=== PATIENT | male | born 1945 | race Caucasian/White ===

== ENCOUNTER 2017-01-20 14:53 | Inpatient (IN) | payer OTHER ==
--- NOTE | ~2017-01-20 | DS ---
Discharge Summary [address] [place]. [address] NAME: JALEEL BONILLA : 45 STATUS : DIS IN PAT#: [id number] AGE: 72 ADM/REG DATE : 01/20/17 MR#: [id number] REPORT SERV DATE: 01/28/17 DICTATED BY: GERHARD JUAREZ DATE: 01/27/17 REPORT STATUS : Draft TRANSCRIBED BY: MODL DATE: 01/27/17 ADMISSION DATE: 01/20/2017 DISCHARGE DATE: 01/27/2017 ADDENDUM: This dictation is an addition to interim discharge summary dictated by Dr. Michael Galloway on 01/23/2017. In addition, the patient did present with fourth lower extremity digit osteomyelitis. Surgery was subsequently consulted. For further details please refer to consultation note dictated on 01/22/2017. I assumed care of the patient on 01/24/2017. The patient was taken to the operating room for fourth digit amputation. For further details, please refer to operative note dictated by Dr. Stanford on 01/24/2017. Status post right fourth digit lower extremity amputation, the patient was returned to the hospital room where he remained hemodynamically stable. The patient was placed on a dressing change schedule of Monday, Monday, and Monday. He was kept inhouse till today for his last dressing change prior to the weekend before being discharged. Plan is for the patient to follow up with Surgery for dressing change and further management. Plan has been discussed with the patient who voices understanding and is agreeable with this plan. All other information in the interim discharge summary remains the same. DISCHARGE MEDICATIONS: 1. Atorvastatin 20 mg p.o. at bedtime. 2. Lisinopril 10 mg p.o. daily. 3. Omeprazole 20 mg p.o. twice a day. 4. Metformin 1000 mg p.o. twice a day. 5. Losartan 25 mg p.o. daily. 6. Alprazolam 1 mg p.o. p.r.n. 7. Zanaflex 2 to 4 mg p.o. twice a day p.r.n. PROCEDURE: Right lower extremity fourth digit amputation on 01/24/2017. MUFFLER HAND: Crow Stanford M.D. MRI lower extremity non-joint performed on 01/21/2017. DISPOSITION: The patient will be discharged home. ACTIVITY: As tolerated. DIET: Diabetic diet. All other information in the discharge summary remains the same. Greater than 30 minutes was spent coordinating care, providing counseling, medication reconciliation, dictation of note. Discharge Summary [address] [place]. [address] NAME: JALEEL BONILLA : 45 STATUS : DIS IN PAT#: [id number] AGE: 72 ADM/REG DATE : 01/20/17 MR#: [id number] REPORT SERV DATE: 01/28/17 DICTATED BY: GERHARD JUAREZ DATE: 01/27/17 REPORT STATUS : Draft TRANSCRIBED BY: JOVANA DATE: 01/27/17 DICTATED BY: MD ROSALIA Solis/JOVANA Gerhard Juarez MD / [id number] CC: MD Jasvir Solis M.D.
--- NOTE | ~2017-01-20 | IDS ---
Interim Discharge Summary [facility] [address] [place]. [address] NAME: JALEEL BONILLA : 45 STATUS : ADM IN [facility]#: [id number] AGE: 72 ADM/REG DATE : 01/20/17 MR#: [id number] REPORT SERV DATE: 01/23/17 DICTATED BY: DATE: REPORT STATUS : Draft TRANSCRIBED BY: MODL DATE: 01/23/17 ADMISSION DATE: 01/20/2017 DISCHARGE DATE: INTERIM DISCHARGE DIAGNOSES: 1. Gangrene of the 4th right toe. 2. Osteomyelitis of the 4th right toe. 3. Tobacco dependence. 4. History of atrial fibrillation. 5. Obesity with BMI of 34.4. 6. Hypertension. 7. Aex-izlzvdm-rneggnrmd diabetes mellitus with a hemoglobin A1c of 8. CONSULTING PHYSICIAN: Crow Stanford M.D. with Surgery. IMAGING: Includes MRI of the right foot demonstrating osteomyelitis of the 4th right toe. HOSPITAL COURSE: Please refer to my H and P on 01/20/2017. Since that time, the patient was placed on IV vancomycin and cefepime. He has been afebrile with a white blood cell count of 5.1. He "feels better." Consult with Dr. Stanford is still pending. He will see the patient today to evaluate for possible amputation. The patient has had three bowel movements today. I am going to discontinue his cefepime and continue him on vancomycin for coverage for staph and strep. 1. Tobacco dependence. The patient has been smoking almost his life. However, he does not want a nicotine patch during his hospital stay. Told him if he changes, Dr. Muñiz will prescribe one. 2. History of atrial fibrillation. The patient is not on rate control nor is he on anticoagulation at home. He has not had atrial fibrillation in "a long time." He is followed by Dr. Stephan Erwin with [facility]. 3. Hypertension. The patient's systolic blood pressures ranged from 119-171 in the last 24 hours. He is on lisinopril 10 mg p.o. daily. He was also on an ARB at home. I discontinued this. 4. Vff-iorizea-ggltqnhjz diabetes mellitus. We discontinued the patient's oral antidiabetics and started the patient on a sliding scale level 2. Blood sugars have ranged from one-teens to 250s. 5. The patient has a history of coronary artery disease, status post CABG and sternotomy. He has not had chest pain during his hospital stay. I performed a 12-lead EKG due to ST changes and T-wave inversion in the inferolateral leads. However, this was present in 2010, looking in [employer]. I discontinued the telemetry. The patient does take care of his mother at home, so he is anxious to get out of the hospital; however, I have told him that he likely needs an amputation and will be a few days before he is able to leave, and discharge planning is pending; however, he will likely go home upon discharge. Interim Discharge Summary [address] [place]. [address] NAME: JALEEL BONILLA : 45 STATUS : ADM IN [facility]#: [id number] AGE: 72 ADM/REG DATE : 01/20/17 MR#: [id number] REPORT SERV DATE: 01/23/17 DICTATED BY: DATE: REPORT STATUS : Draft TRANSCRIBED BY: JOVANA DATE: 01/23/17 JENSEN/JOVANA Michael Galloway NP / [id number] CC: MD Jasvir Galdamez M.D.
--- NOTE | ~2017-01-20 | CN ---
Consultation Report [facility] [address] [place]. [address] NAME: JALEEL BONILLA : 45 STATUS : ADM IN [facility]#: [id number] AGE: 72 ADM/REG DATE : 01/20/17 MR#: [id number] REPORT SERV DATE: 01/23/17 DICTATED BY: CROW AKERS DATE: 01/23/17 REPORT STATUS : Draft TRANSCRIBED BY: MODL DATE: 01/23/17 SURGICAL CONSULTATION DATE OF CONSULTATION: 01/23/2017 REASON FOR CONSULTATION: Right fourth toe diabetic foot ulcer with osteomyelitis and gangrene. HISTORY OF PRESENT ILLNESS: This 72-year-old gentleman states he stepped on a nail through his shoe two weeks ago. He has msr-zlpnbwl-mdghcwopw diabetes mellitus and has had multiple amputations of his toes on his left foot secondary to complications of diabetes mellitus. He was admitted to the hospital and had an MRI that revealed osteomyelitis. 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 He denies any chest pain, shortness of breath, cough, dyspnea on exertion, syncope, or other complications at this time. PAST MEDICAL HISTORY: As above. PAST SURGICAL HISTORY: Coronary artery bypass in 2010, right eye resection at age 3, amputation of left toes, and sinus surgery. SOCIAL HISTORY: The patient smokes a pack of cigarettes daily for 50 years. He used to smoke three packs daily. 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 His of breast cancer last year. He denies alcohol or illicit drug usage. FAMILY HISTORY: Positive for coronary artery disease. ALLERGIES: PHENERGAN. MEDICATIONS: Please see hospital chart. REVIEW OF SYSTEMS: No headache, blurred vision, dizziness, chest pain, shortness of breath, cough, dyspnea on exertion, syncope, palpitations, jaundice, itching, bright red blood per rectum, or melena. PHYSICAL EXAMINATION: GENERAL: Well-developed male who is obese. NECK: Supple. No adenopathy. CARDIOVASCULAR: Regular rate and rhythm. RESPIRATORY: Clear to auscultation. ABDOMEN: Obese, soft, nondistended, nontender. No masses. BACK: No CVA tenderness. EXTREMITIES: The patient has a right 4th toe with black gangrenous slough without significant redness, swelling, or pain. He has his left toes amputated. Consultation Report [address] [facility] [address] NAME: JALEEL BONILLA : 45 STATUS : ADM IN [facility]#: [id number] AGE: 72 ADM/REG DATE : 01/20/17 MR#: [id number] REPORT SERV DATE: 01/23/17 DICTATED BY: CROW AKERS DATE: 01/23/17 REPORT STATUS : Draft TRANSCRIBED BY: JOVANA DATE: 01/23/17 LABORATORY DATA: Please see hospital chart. ASSESSMENT: 1. Right four toe diabetic foot ulcer after trauma with gangrene and osteomyelitis. 2. Noncontrolled insulin-dependent diabetes mellitus with polyneuropathy and foot ulcer. 3. Nicotine dependence. 4. Atrial fibrillation. 5. Coronary artery disease. 6. Hypertension. 7. Obesity with BMI of 34.4. PLAN: The patient will undergo a right 4th toe amputation, possible right 4th toe transmetatarsal amputation. He is aware of the risks, including bleeding, infection, poor cosmetic result, chronic pain, need for further surgical intervention, poor wound healing, and he wishes to proceed. He is aware of the potential for DVT, PE, UT, CVA, and even secondary to his comorbidities with surgery. MARIO/JOVANA Crow Akers M.D. / [id number] CC: MD Jasvir Galdamez M.D.
--- NOTE | ~2017-01-20 | HP ---
History And Physical [id number] [place]. [address] NAME: MEMO RAE : 45 STATUS : ADM IN [facility]#: [id number] AGE: 72 ADM/REG DATE : 01/20/17 MR#: [id number] REPORT SERV DATE: 01/20/17 DICTATED BY: DATE: REPORT STATUS : Draft TRANSCRIBED BY: MODL DATE: 01/20/17 DATE OF ADMISSION: 01/20/2017 CHIEF COMPLAINT: The patient stepped on a nail two weeks ago, states it looks like "gangrene." HISTORY OF PRESENT ILLNESS: Mr. Memo Rae is a 72-year-old male, stepped on a nail two weeks ago. He is a sig-kvhixzm-yicipmozn diabetic. His right 4th toe appears to be black, possibly gangrenous, at the distal and middle phalanx. He denies fevers, chills, or any other constitutional symptoms. He did not seek medical care until today. He went to [facility] Emergency Department. He was transferred here as a direct admission for further workup and treatment. They obtained x-rays at [facility] that appeared suspicious for osteomyelitis. Also, his lactate was elevated at 2.5, however, his white blood cell count was normal. He was afebrile. CRP was negative and ESR was also negative. He was given vancomycin 1 g IV as well as Levaquin 750 mg IV at [facility] prior to transfer as well as Tdap vaccine. At this time, he has mild pain. He says he "doesn't have much feeling in his feet," this is likely due to diabetic neuropathy. MEDICAL HISTORY: Includes coronary artery disease, hypertension, nmk-clhqweu-jzfdwotrc diabetes mellitus, atrial fibrillation, osteomyelitis of the left great toe. PAST SURGICAL HISTORY: Includes coronary artery bypass grafting in 2010; right eye removal when he was 3 years old, he now has prosthesis; amputation of the left toes, all of them; some type of sinus surgery, 30 years ago. SOCIAL HISTORY: The patient smokes one pack per day for past 50+ years. He states that he used to smoke three packs a day and he has cut down to one pack in the last several years. He denies alcohol and illicit drug use. The patient has three children. 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 His last year of breast cancer. FAMILY HISTORY: His mom is 93 years old and lives with him and he takes care of her. His father is and had coronary artery disease and DE in the past. ALLERGIES: INCLUDE PHENERGAN. HOME MEDICATIONS: Unknown at this time. He said "he is on five of them." He will call his pharmacy and get these medications JOSE MARTIN. REVIEW OF SYSTEMS: A 10-point review of systems was performed. All pertinent positives were noted above, otherwise negative. PHYSICAL EXAMINATION: VITAL SIGNS: Blood pressure 129/72, temperature 98.4, pulse 77, respirations 18, O2 saturation 96% on room air. GENERAL: The patient is pleasant, awake, alert, follows commands. History And Physical [address] [address] NAME: MEMO RAE : 45 STATUS : ADM IN [facility]#: [id number] AGE: 72 ADM/REG DATE : 01/20/17 MR#: [id number] REPORT SERV DATE: 01/20/17 DICTATED BY: DATE: REPORT STATUS : Draft TRANSCRIBED BY: MODL DATE: 01/20/17 NEUROLOGIC: Cranial nerves 2 through 12 grossly intact. Alert and oriented x4. CARDIOVASCULAR: S1 and S2 are present. No murmurs, rubs, or gallops were noted. LUNGS: Coarse throughout lung israel. There is normal respiratory effort. The patient is in no acute distress. ABDOMEN: Soft. Nontender. Bowel sounds are present. No organomegaly was appreciated; however, the patient is quite obese, it is difficult to palpate. EXTREMITIES: Lower extremities, no edema was noted. However, distal pulses are decreased. The patient does not have toes on the left side and his right 4th toe is gangrenous appearing. HEENT: The patient has a right eye prosthesis. No redness, swelling, or drainage noted. Throat clear. The patient denies cough or rhinitis. LABORATORY DATA: Sodium 134, potassium 4.8, chloride 96, CO2 of 24, BUN 25, creatinine 1.2. Blood glucose 196, calcium 9.4. White blood cell count 7.2, hemoglobin 12.7, hematocrit 38.7, platelet count 160,000. Lactate 2.5. ASSESSMENT: 1. Gangrene of the right 4th toe. 2. Usd-zcapyuv-vyobjafxp diabetes mellitus. 3. Tobacco dependence. 4. Atrial fibrillation. 5. Mild dehydration. 6. Obesity with a body mass index of 34.4. PLAN: 1. I will obtain an MRI of his right foot to further investigate for osteomyelitis. If this is positive, we will consult Surgery. The patient has seen Dr. Crow Stanford in the past, so we will consult him if needed. I will continue IV vancomycin and add IV cefepime. We will obtain blood cultures x2 as well as procalcitonin. I will monitor his labs in the morning, particularly his white blood cell count. 2. Wls-shomkjy-stgtcnrma diabetes mellitus. The patient is on oral agents, however, he is unsure of which oral agents these are. We were in the process of obtaining records from his pharmacy. In the meantime, I will place the patient on a.c. and at bedtime blood sugars as well as sliding scale insulin. We will check hemoglobin A1c. 3. Tobacco dependence. I offered the patient a nicotine patch, however, he does not want it at this time. 4. Atrial fibrillation. The patient is seen by Dr. Fermín Erwin. He is on a medication "to control the rate." Again, he is unclear what medication this is, so we were in the process of obtaining his records from his pharmacy. In the meantime, we will place him on telemetry and monitor closely. He says he is not on anticoagulation. I will obtain records from [facility] and Dr. Erwin's office. 5. Mild dehydration. The patient's sodium is 134, chloride 96, BUN is 25, and creatinine is 1.2. I will place the patient on normal saline at 75 mL an hour until we can reassess his lab work in the morning. 6. Obesity with BMI of 34.4. I have educated the patient on importance of weight loss and overall health. History And Physical [address] [address] NAME: MEMO RAE : 45 STATUS : ADM IN [facility]#: [id number] AGE: 72 ADM/REG DATE : 01/20/17 MR#: [id number] REPORT SERV DATE: 01/20/17 DICTATED BY: DATE: REPORT STATUS : Draft TRANSCRIBED BY: MODFrancisco DATE: 01/20/17 CLR/JOVANA Michael Galloway NP / [id number] CC: Madan Muñiz MD
--- NOTE | ~2017-01-20 | OP ---
Record Of Operation [facility] [address] [place]. [address] NAME: JALEEL BONILLA : 45 STATUS : ADM IN PAT#: [id number] AGE: 72 ADM/REG DATE : 01/20/17 MR#: [id number] REPORT SERV DATE: 01/24/17 DICTATED BY: CROW AKERS DATE: 01/24/17 REPORT STATUS : Draft TRANSCRIBED BY: MODL DATE: 01/24/17 DATE OF PROCEDURE: PREOPERATIVE DIAGNOSES: 1. Right 4th toe diabetic foot ulcer with osteomyelitis and gangrene. 2. Uncontrolled diabetes mellitus with foot ulcer and polyneuropathy. 3. Nicotine dependence. 4. Morbid obesity with BMI of 34.1. 5. Hypertension. 6. Coronary artery disease. POSTOPERATIVE DIAGNOSES: 1. Right 4th toe diabetic foot ulcer with osteomyelitis and gangrene. 2. Uncontrolled diabetes mellitus with foot ulcer and polyneuropathy. 3. Nicotine dependence. 4. Morbid obesity with BMI of 34.1. 5. Hypertension. 6. Coronary artery disease. PROCEDURE: Right 4th toe amputation. ANESTHESIA: General. SURGEON: Crow Akers M.D. COOKER CASING: Von. COMPLICATIONS: None. DRAINS: None. ESTIMATED BLOOD LOSS: 10 mL. OPERATIVE TECHNIQUE: The patient was brought to the operating room and placed on the table in supine position. He underwent general endotracheal anesthesia, was prepped and draped in sterile fashion, and a time-out was completed. Local anesthesia was instilled to the skin and subcutaneous tissue at the base of the toe. A racquet incision was made with a 15 blade knife. Electrocautery with the Bovie pencil was used to dissect down to the level of the bone. This dissection continued into the joint capsule and the toe was disarticulated and all soft tissue was excised and the toe was discarded. The wound was then irrigated and hemostasis obtained using electrocautery. The deep and superficial subcutaneous tissues were reapproximated using interrupted 3-0 Vicryl sutures followed by 3-0 nylon sutures in simple fashion at the skin. There was no tension and he had no involvement of the skin at closure. The Aquacel Ag was placed over the incision followed by dry gauze, roll gauze, and an Luiz bandage. He was extubated and taken to the recovery room in stable condition. All sponge and needle counts were reported correct. Record Of Operation [facility] [place]. [address] NAME: JALEEL BONILLA : 45 STATUS : ADM IN PAT#: [id number] AGE: 72 ADM/REG DATE : 01/20/17 MR#: [id number] REPORT SERV DATE: 01/24/17 DICTATED BY: CROW AKERS DATE: 01/24/17 REPORT STATUS : Draft TRANSCRIBED BY: JOVANA DATE: 01/24/17 /JOVANA Crow Akers M.D. / [id number] CC: MD Jasvir Solis M.D. Hany A. Naggar, MD
[~2017-01-20 14:53] MED LIST: ASAB PO; GLUCOPHAGE1000 MG PO; LORT2.5 PO; MICRONASE2.5 MG PO; PRILO PO; X25 PO; ZESTORETIC PO
[2017-01-20] MEDS ORDERED: GLUCOPHAGE1000 MG PO (17:53)
[2017-01-20] MEDS ORDERED: PRILO PO (17:53)
[2017-01-20] MEDS ORDERED: COZ25 PO (17:54)
[2017-01-20] MEDS ORDERED: XANAX1 MG PO (17:54)
[2017-01-20] MEDS ORDERED: PRIN10 PO (17:54)
[2017-01-20] MEDS ORDERED: LIPITOR20 PO (17:54)
[2017-01-20] MEDS ORDERED: ZANAFLEX2 MG PO (17:54)
[2017-01-20 20:24] LABS: BASOPHILS 0.4 %; BASOPHILS ABSOLUTE 0.03 10/3/uL (0.0-0.16); EOSINOPHILS 3.5 %; EOSINOPHILS ABSOLUTE 0.25 10/3/uL (0.0-0.53); HEMATOCRIT 38.6 % (40.0-51.0); HEMOGLOBIN 12.5 g/dL (13.6-17.8); IMMATURE GRANULOCYTES 0.3 %; IMMATURE GRANULOCYTES ABSOLUTE 0.02 10/3/uL (0.0-0.11); LYMPHOCYTES 15.8 %; LYMPHOCYTES ABSOLUTE 1.12 10/3/uL (0.67-4.30); MEAN CORPUS HGB CONC 32.4 g/dL (32.0-36.0); MEAN CORPUSCULAR HEMOGLOB 28.9 pg (26.0-34.0); MEAN CORPUSCULAR VOLUME 89.4 fL (80-100); MEAN PLATELET VOLUME 10.1 fL (9.2-13.0); MONOCYTES 10.5 %; MONOCYTES ABSOLUTE 0.74 10/3/uL (0.21-1.20); NEUTROPHILS 69.5 %; NEUTROPHILS ABSOLUTE 4.92 10/3/uL (2.02-8.40); PLATELET COUNT 166 10/3/uL (150-400); RED CELL COUNT 4.32 10/6/uL (4.7-6.1); WHITE BLOOD CELLS 7.1 10/3/uL (4.5-10.5)
[2017-01-20 20:28] LABS: MANUAL DIFF NO %
[2017-01-20 20:35] LABS: BUN (BLOOD UREA NITROGEN) 23 MG/DL (6-23); CALCIUM, SERUM 8.9 MG/DL (8.5-10.4); CHLORIDE, SERUM 107 MMOL/L (96-112); CO2 (CARBON DIOXIDE) 29 MMOL/L (24-34); CREATININE 1.13 MG/DL (0.70-1.30); GFR AFRICAN AMERICAN 75 ML/MIN (>=60); GFR NON AFRICAN AMERICAN 65 ML/MIN (>=60); GLUCOSE, SERUM 82 MG/DL (60-99); SODIUM, SERUM 140 MMOL/L (135-148)
[2017-01-21 05:27] LABS: BASOPHILS 0.5 %; BASOPHILS ABSOLUTE 0.03 10/3/uL (0.0-0.16); EOSINOPHILS 4.2 %; EOSINOPHILS ABSOLUTE 0.25 10/3/uL (0.0-0.53); HEMATOCRIT 38.1 % (40.0-51.0); HEMOGLOBIN 12.5 g/dL (13.6-17.8); IMMATURE GRANULOCYTES 0.2 %; IMMATURE GRANULOCYTES ABSOLUTE 0.01 10/3/uL (0.0-0.11); LYMPHOCYTES 21.3 %; LYMPHOCYTES ABSOLUTE 1.27 10/3/uL (0.67-4.30); MEAN CORPUS HGB CONC 32.8 g/dL (32.0-36.0); MEAN CORPUSCULAR HEMOGLOB 28.9 pg (26.0-34.0); MEAN CORPUSCULAR VOLUME 88.2 fL (80-100); MEAN PLATELET VOLUME 9.2 fL (9.2-13.0); MONOCYTES 10.2 %; MONOCYTES ABSOLUTE 0.61 10/3/uL (0.21-1.20); NEUTROPHILS 63.6 %; NEUTROPHILS ABSOLUTE 3.79 10/3/uL (2.02-8.40); PLATELET COUNT 159 10/3/uL (150-400); RED CELL COUNT 4.32 10/6/uL (4.7-6.1)
[2017-01-21 05:28] LABS: MANUAL DIFF NO %
[2017-01-21 05:42] LABS: BUN (BLOOD UREA NITROGEN) 21 MG/DL (6-23); CALCIUM, SERUM 9.4 MG/DL (8.5-10.4); CHLORIDE, SERUM 107 MMOL/L (96-112); CO2 (CARBON DIOXIDE) 28 MMOL/L (24-34); CREATININE 1.22 MG/DL (0.70-1.30); GFR AFRICAN AMERICAN 68 ML/MIN (>=60); GFR NON AFRICAN AMERICAN 59 ML/MIN (>=60); POTASSIUM, SERUM 3.9 MMOL/L (3.5-5.3); SODIUM, SERUM 143 MMOL/L (135-148)
[2017-01-21 05:43] LABS: GLUCOSE, SERUM 116 MG/DL (60-99); PHOSPHORUS, SERUM 3.5 MG/DL (2.5-4.5)
[2017-01-22 05:08] LABS: BASOPHILS 0.4 %; BASOPHILS ABSOLUTE 0.02 10/3/uL (0.0-0.16); EOSINOPHILS 4.5 %; EOSINOPHILS ABSOLUTE 0.23 10/3/uL (0.0-0.53); HEMATOCRIT 37.7 % (40.0-51.0); HEMOGLOBIN 12.3 g/dL (13.6-17.8); IMMATURE GRANULOCYTES 0.2 %; IMMATURE GRANULOCYTES ABSOLUTE 0.01 10/3/uL (0.0-0.11); LYMPHOCYTES 24.9 %; LYMPHOCYTES ABSOLUTE 1.27 10/3/uL (0.67-4.30); MEAN CORPUS HGB CONC 32.6 g/dL (32.0-36.0); MEAN CORPUSCULAR HEMOGLOB 28.8 pg (26.0-34.0); MEAN CORPUSCULAR VOLUME 88.3 fL (80-100); MONOCYTES 10.4 %; MONOCYTES ABSOLUTE 0.53 10/3/uL (0.21-1.20); NEUTROPHILS 59.6 %; NEUTROPHILS ABSOLUTE 3.04 10/3/uL (2.02-8.40); PLATELET COUNT 165 10/3/uL (150-400); RBC DISTRIBUTION WIDTH 14.1 % (12.0-16.0); RED CELL COUNT 4.27 10/6/uL (4.7-6.1); WHITE BLOOD CELLS 5.1 10/3/uL (4.5-10.5)
[2017-01-22 05:10] LABS: MANUAL DIFF NO %
[2017-01-22 05:21] LABS: BUN (BLOOD UREA NITROGEN) 19 MG/DL (6-23); CHLORIDE, SERUM 109 MMOL/L (96-112); CO2 (CARBON DIOXIDE) 28 MMOL/L (24-34); GFR AFRICAN AMERICAN 77 ML/MIN (>=60); GFR NON AFRICAN AMERICAN 67 ML/MIN (>=60); POTASSIUM, SERUM 3.9 MMOL/L (3.5-5.3); SODIUM, SERUM 143 MMOL/L (135-148)
[2017-01-22 05:23] LABS: GLUCOSE, SERUM 182 MG/DL (60-99)
[2017-01-24 06:26] LABS: BASOPHILS 0.3 %; BASOPHILS ABSOLUTE 0.02 10/3/uL (0.0-0.16); HEMATOCRIT 37.6 % (40.0-51.0); HEMOGLOBIN 12.4 g/dL (13.6-17.8); IMMATURE GRANULOCYTES 0.3 %; IMMATURE GRANULOCYTES ABSOLUTE 0.02 10/3/uL (0.0-0.11); LYMPHOCYTES 18.3 %; MEAN CORPUSCULAR HEMOGLOB 29.5 pg (26.0-34.0); MEAN CORPUSCULAR VOLUME 89.5 fL (80-100); MEAN PLATELET VOLUME 10.1 fL (9.2-13.0); MONOCYTES 10.3 %; MONOCYTES ABSOLUTE 0.62 10/3/uL (0.21-1.20); NEUTROPHILS 65.8 %; NEUTROPHILS ABSOLUTE 3.96 10/3/uL (2.02-8.40); PLATELET COUNT 159 10/3/uL (150-400); RBC DISTRIBUTION WIDTH 13.8 % (12.0-16.0)
[2017-01-24 06:28] LABS: MANUAL DIFF NO %
[2017-01-24 06:34] LABS: CALCIUM, SERUM 8.9 MG/DL (8.5-10.4); CHLORIDE, SERUM 108 MMOL/L (96-112); CO2 (CARBON DIOXIDE) 29 MMOL/L (24-34); CREATININE 1.04 MG/DL (0.70-1.30); GFR AFRICAN AMERICAN 83 ML/MIN (>=60); GFR NON AFRICAN AMERICAN 71 ML/MIN (>=60); GLUCOSE, SERUM 203 MG/DL (60-99); POTASSIUM, SERUM 3.9 MMOL/L (3.5-5.3); SODIUM, SERUM 142 MMOL/L (135-148)
[2017-01-24 06:36] LABS: BUN (BLOOD UREA NITROGEN) 15 MG/DL (6-23)
[2017-01-25 06:13] LABS: BASOPHILS 0.4 %; BASOPHILS ABSOLUTE 0.03 10/3/uL (0.0-0.16); EOSINOPHILS 4.5 %; EOSINOPHILS ABSOLUTE 0.33 10/3/uL (0.0-0.53); HEMOGLOBIN 13.3 g/dL (13.6-17.8); IMMATURE GRANULOCYTES 0.1 %; IMMATURE GRANULOCYTES ABSOLUTE 0.01 10/3/uL (0.0-0.11); LYMPHOCYTES 15.2 %; LYMPHOCYTES ABSOLUTE 1.12 10/3/uL (0.67-4.30); MANUAL DIFF NO %; MEAN CORPUS HGB CONC 32.4 g/dL (32.0-36.0); MEAN CORPUSCULAR HEMOGLOB 29.3 pg (26.0-34.0); MEAN CORPUSCULAR VOLUME 90.3 fL (80-100); MONOCYTES 8.4 %; MONOCYTES ABSOLUTE 0.62 10/3/uL (0.21-1.20); NEUTROPHILS 71.4 %; NEUTROPHILS ABSOLUTE 5.25 10/3/uL (2.02-8.40); PLATELET COUNT 170 10/3/uL (150-400); RBC DISTRIBUTION WIDTH 13.9 % (12.0-16.0); RED CELL COUNT 4.54 10/6/uL (4.7-6.1); WHITE BLOOD CELLS 7.4 10/3/uL (4.5-10.5)
[2017-01-25 06:33] LABS: ALBUMIN 3.5 G/DL (3.5-5.0); ALKALINE PHOSPHATASE 90 U/L (45-117); BUN (BLOOD UREA NITROGEN) 13 MG/DL (6-23); CALCIUM, SERUM 8.6 MG/DL (8.5-10.4); CHLORIDE, SERUM 106 MMOL/L (96-112); CO2 (CARBON DIOXIDE) 33 MMOL/L (24-34); CREATININE 1.11 MG/DL (0.70-1.30); GFR AFRICAN AMERICAN 76 ML/MIN (>=60); GFR NON AFRICAN AMERICAN 66 ML/MIN (>=60); GLUCOSE, SERUM 226 MG/DL (60-99); SGOT(AST) 16 U/L (5-40); SGPT(ALT) 27 U/L (5-65); SODIUM, SERUM 139 MMOL/L (135-148); TOTAL PROTEIN 6.7 G/DL (6.0-8.5)
[2017-01-25 06:35] LABS: A/G RATIO 1.1 (0.7-1.9); GLOBULIN 3.2 G/DL (2.5-4.1); TOTAL BILIRUBIN 0.9 MG/DL (0-1.2)
[2017-01-26 06:45] LABS: BASOPHILS 0.3 %; BASOPHILS ABSOLUTE 0.02 10/3/uL (0.0-0.16); EOSINOPHILS 4.2 %; EOSINOPHILS ABSOLUTE 0.28 10/3/uL (0.0-0.53); HEMATOCRIT 38.7 % (40.0-51.0); HEMOGLOBIN 12.5 g/dL (13.6-17.8); IMMATURE GRANULOCYTES 0.3 %; IMMATURE GRANULOCYTES ABSOLUTE 0.02 10/3/uL (0.0-0.11); LYMPHOCYTES 17.4 %; LYMPHOCYTES ABSOLUTE 1.16 10/3/uL (0.67-4.30); MEAN CORPUS HGB CONC 32.3 g/dL (32.0-36.0); MEAN CORPUSCULAR VOLUME 89.8 fL (80-100); MEAN PLATELET VOLUME 10.1 fL (9.2-13.0); MONOCYTES 10.1 %; MONOCYTES ABSOLUTE 0.67 10/3/uL (0.21-1.20); NEUTROPHILS 67.7 %; PLATELET COUNT 171 10/3/uL (150-400); RBC DISTRIBUTION WIDTH 13.8 % (12.0-16.0); RED CELL COUNT 4.31 10/6/uL (4.7-6.1); WHITE BLOOD CELLS 6.7 10/3/uL (4.5-10.5)
[2017-01-26 06:46] LABS: MANUAL DIFF NO %
[2017-01-26 06:58] LABS: ALBUMIN 3.4 G/DL (3.5-5.0); ALKALINE PHOSPHATASE 92 U/L (45-117); BUN (BLOOD UREA NITROGEN) 12 MG/DL (6-23); CALCIUM, SERUM 8.8 MG/DL (8.5-10.4); CHLORIDE, SERUM 106 MMOL/L (96-112); CO2 (CARBON DIOXIDE) 29 MMOL/L (24-34); CREATININE 1.02 MG/DL (0.70-1.30); GFR AFRICAN AMERICAN 85 ML/MIN (>=60); GFR NON AFRICAN AMERICAN 73 ML/MIN (>=60); GLOBULIN 3.5 G/DL (2.5-4.1); GLUCOSE, SERUM 201 MG/DL (60-99); POTASSIUM, SERUM 3.9 MMOL/L (3.5-5.3); SGOT(AST) 11 U/L (5-40); SGPT(ALT) 24 U/L (5-65); SODIUM, SERUM 141 MMOL/L (135-148); TOTAL PROTEIN 6.9 G/DL (6.0-8.5)
[2017-01-27 06:30] LABS: BASOPHILS 0.3 %; BASOPHILS ABSOLUTE 0.02 10/3/uL (0.0-0.16); EOSINOPHILS 5.1 %; EOSINOPHILS ABSOLUTE 0.31 10/3/uL (0.0-0.53); HEMATOCRIT 38.5 % (40.0-51.0); HEMOGLOBIN 12.4 g/dL (13.6-17.8); IMMATURE GRANULOCYTES 0.3 %; IMMATURE GRANULOCYTES ABSOLUTE 0.02 10/3/uL (0.0-0.11); LYMPHOCYTES 18.1 %; LYMPHOCYTES ABSOLUTE 1.11 10/3/uL (0.67-4.30); MEAN CORPUS HGB CONC 32.2 g/dL (32.0-36.0); MEAN PLATELET VOLUME 9.9 fL (9.2-13.0); MONOCYTES 14.1 %; MONOCYTES ABSOLUTE 0.86 10/3/uL (0.21-1.20); NEUTROPHILS 62.1 %; PLATELET COUNT 172 10/3/uL (150-400); RBC DISTRIBUTION WIDTH 13.8 % (12.0-16.0); RED CELL COUNT 4.28 10/6/uL (4.7-6.1); WHITE BLOOD CELLS 6.1 10/3/uL (4.5-10.5)
[2017-01-27 06:31] LABS: MANUAL DIFF NO %
[2017-01-27 06:50] LABS: A/G RATIO 0.9 (0.7-1.9); ALBUMIN 3.3 G/DL (3.5-5.0); ALKALINE PHOSPHATASE 91 U/L (45-117); BUN (BLOOD UREA NITROGEN) 10 MG/DL (6-23); CALCIUM, SERUM 9.1 MG/DL (8.5-10.4); CHLORIDE, SERUM 107 MMOL/L (96-112); CO2 (CARBON DIOXIDE) 26 MMOL/L (24-34); CREATININE 0.96 MG/DL (0.70-1.30); GFR AFRICAN AMERICAN 91 ML/MIN (>=60); GFR NON AFRICAN AMERICAN 79 ML/MIN (>=60); GLOBULIN 3.5 G/DL (2.5-4.1); GLUCOSE, SERUM 193 MG/DL (60-99); POTASSIUM, SERUM 3.8 MMOL/L (3.5-5.3); SGOT(AST) 12 U/L (5-40); SGPT(ALT) 23 U/L (5-65); SODIUM, SERUM 140 MMOL/L (135-148); TOTAL BILIRUBIN 0.6 MG/DL (0-1.2); TOTAL PROTEIN 6.8 G/DL (6.0-8.5)
[2017-03-06] MEDS ORDERED: IBU400 PO (17:06)
[2017-03-06] MEDS ORDERED: STELARA IM (17:06)
[2017-03-06] MEDS ORDERED: COZ25 PO (17:07)
[2017-03-06] MEDS ORDERED: GLUCOPHAGE1000 MG PO (17:07)
[2017-03-06] MEDS ORDERED: PRIN20 PO (17:07)
[2017-03-06] MEDS ORDERED: PRILO PO (17:07)
[2017-03-06] MEDS ORDERED: LIPITOR20 PO (17:07)
[2017-03-06] MEDS ORDERED: NITROSTAT0.4 MG SL (17:08)
[2017-03-06] MEDS ORDERED: NORCO1 TAB PO (17:08)
[2017-03-06] MEDS ORDERED: FLONASE NAS (17:08)
[2017-03-06] MEDS ORDERED: FLOMAX4 PO (17:08)
[2017-03-06] MEDS ORDERED: INVOKANA100 MG PO (17:08)
[2017-03-06] MEDS ORDERED: TRIAMCINOLONE C80 GM TOP (17:09)
[2017-03-06] MEDS ORDERED: AMARYL4 PO (17:09)
[2017-03-06] MEDS ORDERED: COREG12 PO (17:09)
[2017-03-06] MEDS ORDERED: CLOBETASOL 0.05% TOP (17:10)
[2017-04-19] MEDS ORDERED: XANAX1 MG PO (14:43)
[2017-04-19] MEDS ORDERED: TRIAMCINOLONE O80 GM TOP (15:13)
== END 2017-01-27 11:25 | disposition home health service (06) | DRG 617 ==
LOC: 5SO 14:53
PROVIDERS: Hospitalist; Internal Medicine; Nurse Practitioner Acute Care; Surgery
PROC: 0Y6V0Z0 Detachment at Right 4th Toe, Complete, Open Approach (ICD-10-PCS; principal; 2017-01-24 09:45)
DX: E11.69 Type 2 diabetes mellitus with other specified complication (principal); E11.52 Type 2 diabetes mellitus with diabetic peripheral angiopathy with gangrene; E11.65 Type 2 diabetes mellitus with hyperglycemia; I48.91 Unspecified atrial fibrillation; L97.519 Non-pressure chronic ulcer of other part of right foot with unspecified severity; M86.8X7 Other osteomyelitis, ankle and foot; E86.0 Dehydration; I10 Essential (primary) hypertension; E11.621 Type 2 diabetes mellitus with foot ulcer; E66.9 Obesity, unspecified; I25.10 Atherosclerotic heart disease of native coronary artery without angina pectoris; Z68.34 Body mass index [BMI] 34.0-34.9, adult; F17.210 Nicotine dependence, cigarettes, uncomplicated; Z79.84 Long term (current) use of oral hypoglycemic drugs; Z95.1 Presence of aortocoronary bypass graft; Z89.422 Acquired absence of other left toe(s)
CPT/HCPCS: 73718-RT; 80048; 80053; 80202; 82962; 83036; 83735; 84100; 84145; 85025; 87040; 88305; 88311; 93005; A9270-GY; J0692; J2405; J2710; J3010; J3370